=== PATIENT | female | born 1950 | race American Indian/Alaskan Native ===

== ENCOUNTER 2021-04-30 10:49 | Outpatient (CLI) | payer OTHER ==
--- NOTE | 2021-04-30 13:03 | Mammography Report ---
DIGITAL SCREENING MAMMOGRAM WITH CAD, 04/30/2021 CLINICAL INFORMATION / INDICATION: Routine screening mammography. Left lumpectomy and radiation. Righ t reduction. TECHNIQUE: Digital bilateral 2D mammography was obtained in the craniocaudal and mediolateral obliqu e projections. This examination was interpreted with the benefit of Computer-Aided Detection analysis . COMPARISON: None available. Previous erh-rt-[id number] mammogram is not available. FINDINGS: Breast Density: There are scattered areas of fibroglandular density. No dominant mass, suspicious calcifications, or architectural distortion in either breast. Left breast postsurgical and radiation findings are present. IMPRESSION: No mammographic evidence of malignancy. Follow up recommendation: Routine yearly BI-RADS Category 2: BENIGN. A "normal" or negative report should not discourage follow up or biopsy of a clinically significant f inding. A written summary of these findings will be mailed to the patient. The patient will be entered into a mammography reporting system which will generate a reminder letter for the patient's next appointmen t at the appropriate interval. The [employer] recommends yearly mammograms starting at age 40 and continuing as l saritha as a woman is in good health. Breast MRI is recommended for women with an approximate 20-25% or greater lifetime risk of breast cancer, including women with a strong family history of breast or ova mahsa cancer or who have been treated for Hodgkin's disease. Signer Name: Lupe Goldman MD Signed: 04/30/2021 12:57 PM Workstation Name: [id number]
== END 2021-04-30 10:50 | disposition home or self-care (01) ==
LOC: MAMMO 10:49
DX: Z12.31 Encounter for screening mammogram for malignant neoplasm of breast (principal); N64.89 Other specified disorders of breast
CPT/HCPCS: 77067